=== PATIENT | female | born 1995 | race Two or more races ===

== ENCOUNTER 2019-04-23 21:29 | Emergency (ER) | payer MEDICAID ==
[~2019-04-23] VITALS: Ht 154.9 cm; Wt 79.4 kg
--- NOTE | 2019-04-23 21:45 | NUR ---
ED Nurse Note: Patient walked in c/o back pain from neck to legs. Pt she first noticed it 2 months ago but pain/ tingle-like sensation that starts from stomach to bilateral lower legs. Pt stated she was hospitalized of muscle weakness about 1.5 months ago. AAO x4, VSS at this time.
[2019-04-23] MEDS ORDERED: MEDROL DOSEPAK4 MG ORAL (21:59)
--- NOTE | 2019-04-23 21:59 | Emergency Room Report ---
History of Present Illness General Chief Complaint: Pain Source: Patient Present Illness HPI This is a 23-year-old female with no past medical history. She presents with chief complaint of back pain and numbness and tingling to her lower extremity. She had this problem about a month and a half ago. She went to [facility] and was actually admitted for 3 days. She had a CT scan initially and was told there is something wrong with them. She was admitted and work-up included MRI of her brain and spine. She also had a lumbar puncture. After 3 days she was told everything looks fine except for one test that was elevated. She was discharged home. Since then she still having symptoms. Pain is mostly mid thoracic and lower thoracic area. Worse when he bends over or moves certain way. Sometimes she gets spasm to her lower extremity. She felt like she has a hard time walking like a toddler turning to walk. Now with numbness to the anterior aspect of bilateral thighs. No weight loss. No trauma. No fever chills but no incontinence of bowel or urine. Allergies: Coded Allergies: No Known Allergies (Unverified , 04/23/19) Patient History Past Medical History: see triage record, old chart reviewed Past Surgical History: none Pertinent Family History: none Social History: Denies: smoking Last Menstrual Period: 03/27/2019 Now: No Immunizations: other Reviewed Nursing Documentation: PMH: Agreed; PSxH: Agreed Nursing Documentation-PM Past Medical History: No Stated History Review of Systems Eye: Denies: eye pain, blurred vision ENT: Denies: ear pain, nose congestion, throat swelling Respiratory: Denies: cough, shortness of breath Cardiovascular: Denies: chest pain, palpitations Gastrointestinal: Denies: abdominal pain, diarrhea, nausea, vomiting Musculoskeletal: Reports: back pain, muscle stiffness; Denies: joint pain Skin: Denies: rash Neurological: Denies: headache, numbness Endocrine: Denies: increased thirst, increased urine Hematologic/Lymphatic: Denies: easy bruising All Other Systems: negative except mentioned in HPI Physical Exam Vital Signs Date Time Temp Pulse Resp B/P (MAP) Pulse Ox O2 Delivery O2 Flow Rate FiO2 04/23/19 21:33 98.2 81 16 111/73 (86) 97 Room Air Vitals normal Sp02 EP Interpretation: reviewed, normal General Appearance: well appearing, no apparent distress, alert Head: normocephalic, atraumatic Eyes: bilateral eye PERRL, bilateral eye EOMI ENT: hearing grossly normal, normal pharynx Neck: full range of motion, supple, no meningismus Respiratory: chest non-tender, lungs clear, normal breath sounds Cardiovascular #1: regular rate, rhythm, no murmur Gastrointestinal: normal bowel sounds, non tender, no mass, no organomegaly, no bruit, non-distended Musculoskeletal: back normal, gait/station normal, normal range of motion Psychiatric: mood/affect normal Medical Decision Making Diagnostic Impression: Primary Impression: Back pain Qualified Codes: M54.6 - Pain in thoracic spine; G89.29 - Other chronic pain ER Course Patient with back pain and lower extremity findings with spasm and paresthesia. She has some weakness with that also. No evidence of cauda equina syndrome, spinal epidural abscess or neoplastic process. Her symptoms concerning for possible multiple sclerosis or other autoimmune/neurological disorder. She will need further work-up with a neurologist. I recommend that she get records from [facility] and have her primary care doctor referred her to our neurologist for further work-up. Last Vital Signs Date Time Temp Pulse Resp B/P (MAP) Pulse Ox O2 Delivery O2 Flow Rate FiO2 04/23/19 21:33 98.2 81 16 111/73 (86) 97 Room Air Status: unchanged Disposition: HOME, SELF-CARE Condition: Stable Scripts Methylprednisolone (Methylprednisolone*) 4MG Dspk 4 MG ORAL DIRECTED for 6 Days, #21 EA 0 Refills Day 1: Two tablets before breakfast, one after lunch, one after dinner, and two at bedtime. If started late in the day, take all six tablets at once or divide into two or three doses, unless otherwise directed by prescriber. Day 2: One tablet before breakfast, one after lunch, one after dinner, and two at bedtime Day 3: One tablet before breakfast, one after lunch, one after dinner, and one at bedtime Day 4: One tablet before breakfast, one after lunch, and one at bedtime Day 5: One tablet before breakfast and one at bedtime Day 6: One tablet before breakfast Prov: Aníbal Byrd MD 04/23/19 Additional Instructions: Follow-up with your doctor in 7 days. You will need a note to see a neurologist. Get your records from [facility]. Return if symptoms worsen. Aníbal Byrd MD Apr 23, 2019 21:59
[2019-04-23 22:01] VITALS: BP 111/73
[2019-04-23 22:04] VITALS: BP 111/73
--- NOTE | 2019-04-23 22:05 | NUR ---
ED Nurse Note: Pt cleared by health care Provider for discharge. DC instructions/prescription was given and explained to pt and verbalized understanding of teachings. All medical deviecs such as ID band removed. Pt is AAO x4, ambulatory and left with all personal belongings.
== END 2019-04-23 22:07 | disposition home or self-care (01) ==
LOC: EMR 22:00
DX: M54.6 Pain in thoracic spine (principal); G89.29 Other chronic pain; R20.0 Anesthesia of skin
CPT/HCPCS: J7512; Z7502; 99282